=== PATIENT | male | born 1970 | race Caucasian/White ===

== ENCOUNTER 2021-06-11 10:23 | Outpatient (CLI) | payer BC | END 2021-06-11 10:24 | disposition home or self-care (01) | LOC: CSHMRI 10:23 | PROVIDERS: ATTEND Family Medicine | DX: M25.562 Pain in left knee (principal); M89.9 Disorder of bone, unspecified; S86.912A Strain of unspecified muscle(s) and tendon(s) at lower leg level, left leg, initial encounter; M76.9 Unspecified enthesopathy, lower limb, excluding foot; M25.462 Effusion, left knee ==